=== PATIENT | male | born 1995 | race Caucasian/White ===

== ENCOUNTER 2024-04-07 00:30 | Emergency (ER) | payer SELFPAY ==
[2024-04-07 00:33] VITALS: BP 130/75; PULSE 95; RESP 16; TEMP 36.6; O2SAT 100; BMI 252.4
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
== END 2024-04-07 01:28 | disposition home or self-care (01) ==
PROVIDERS: Emergency Provider Emergency Medicine
DX: S09.8XXA Other specified injuries of head, initial encounter (principal); V89.2XXA Person injured in unspecified motor-vehicle accident, traffic, initial encounter
CPT/HCPCS: 70450; 71045; 72125; 99284